=== PATIENT | female | born 1975 | race Hispanic/Latino ===

== ENCOUNTER → 2016-08-13 | Outpatient (CLI) | payer OTHER ==
[~2016-08-13] MED LIST: COLA100C PO; DULO30CA PO; IBUP-1114 PO; LEVO25TA5 PO; METF500T PO; MOTR200T44 PO; NEXI40CA PO; PERC5TAB6 PO; PERCOCET PO; RANI15TA PO
== END ==
LOC: M LAB 09:14
PROVIDERS: ATTEND Neurological Surgery
DX: E66.9 Obesity, unspecified (principal)

== ENCOUNTER → 2016-08-22 | Outpatient (CLI) | payer OTHER ==
--- NOTE | 2016-08-22 12:59 | REP ---
CERVICAL SPINE, EIGHT VIEWS: HISTORY: Spondylosis. There is no acute fracture or subluxation. The intervertebral discs are normal in height. Calcification is present anterior to the C4-5 intervertebral disc. This represents calcification of the anterior longitudinal ligament. The neural foramina are patent. IMPRESSION: There is no acute fracture or subluxation. Signed by Reji Greer MD 08/22/2016 01:05 P
--- NOTE | 2016-08-22 13:01 | REP ---
LUMBAR SPINE, SEVEN VIEWS: HISTORY: Spondylosis. The lowest intervertebral disc is assumed to be the L5-S1 intervertebral disc. There is no acute fracture. The L3-4 and L4-5 intervertebral discs are decreased in height consistent with disc degeneration. Osteophytes are present on L4 and 5. The facet joints are normal in appearance. There are 2 mm of grade 1 spondylolisthesis of L4 on 5 with flexion. This is not seen in neutral or extension radiographs. IMPRESSION: Degenerative change as described above. Signed by Reji Greer MD 08/22/2016 01:05 P
== END ==
LOC: M RAD 11:55
PROVIDERS: ATTEND Neurological Surgery
DX: M47.892 Other spondylosis, cervical region (principal); M47.896 Other spondylosis, lumbar region; M51.36 Other intervertebral disc degeneration, lumbar region